=== PATIENT | female | born 1995 | race Caucasian/White ===

== ENCOUNTER 2023-07-29 05:39 | Inpatient (IN) ==
--- NOTE | 2023-07-09 10:57 | Anesthesiology Consultation ---
Date of Service July 09, 2023 Assessment & Plan Chart Review Chart Review: Acceptable Risk for Surgery and Patient NOT seen in Pre Admission Testing History Surgery Operation Date: 07/29/23 07:30 Proposed Procedures p Section (Delivery of Baby Through Abdominal Incision) - Maureen Chong MD, FACOG Height/Weight Height: 5 ft 10 in Weight: 145.059 kg Allergies Allergy/AdvReac Type Severity Reaction Status Date / Time No Known Allergies Allergy Verified 07/09/23 08:59 Medications Home Medications Medication Instructions Recorded Confirmed Last Taken vit 168-iron 27 mg-folic 1 cap PO QAM 12/08/22 07/09/23 07/01/23 08:00 acid 800 mcg-omega3 235 mg capsule (One-A-Day -1) breast pump #1 ea 05/10/23 07/05/23 Unknown aspirin 81 mg chewable tablet 81 mg PO QAM 07/01/23 07/09/23 07/01/23 08:00 acetaminophen 500 mg tablet 500 - 1,000 mg PO UD PRN Pain 07/09/23 07/09/23 Unknown (Tylenol Extra Strength) diphenhydramine 25 1 tab PO HS PRN Sleep 07/09/23 07/09/23 Unknown mg-acetaminophen 500 mg tablet (Tylenol PM Extra Strength) levothyroxine 25 mcg tablet 25 mcg PO QAM 07/09/23 07/09/23 Unknown Past Medical History Medical History History of anesthesia reaction with c/s groggy off and on for awhile after. with galbladder took awhile to wake up. n/v. History of anemia following c/s 2021. History of COVID-19 (~01/2023) x3 total , most recent 01/2023 Pre-eclampsia hx with prior / not sure if official dx this , is being monitored. eval in L&D 06/2023. History of cardiac murmur Noted in childhood/not heard as an adult per patient No murmur noted at PAT visit 05/10/23 History of anxiety Hypothyroidism Past Family History Family History Brother Seizures Past Surgical History Surgical History History of wisdom tooth extraction S/P cholecystectomy 09/2022, [facility] Hx of section Done under general anesthesia, 01/2022 (records scanned into [facility]) Social History Smoking Status: Former smoker Do You Dip or Chew Tobacco: No Smoking End Date: none for yrs Hx Alcohol Use: No Hx Substance Use: No substance use type: does not use
[~2023-07-29 05:39] MED LIST: SODIUM CHLORIDE 0.9% 250 ML IV PRN
[2023-07-29] MEDS ORDERED: LACTATED RINGER'S 1,000 ML IV SCH (05:45)
[2023-07-29] MEDS: LACTATED RINGER'S 1,000 ML IV SCH ×2 (06:04→12:19)
[2023-07-29 06:38] LABS: Basophils # (auto) 0.03 K/uL (0.00-0.20); Basophils % (auto) 0.3 %; Eosinophils # (auto) 0.06 K/uL (0.00-0.50); Eosinophils % (auto) 0.5 %; Hematocrit (blood only) 35.3 % (37.0-47.0); Hemoglobin 11.5 g/dl (12.0-16.0); Immature Granulocytes # (auto) 0.03 K/uL (0.01-0.20); Immature Granulocytes % (auto) 0.3 %; Lymphocytes # (auto) 2.18 K/uL (1.20-3.40); Lymphocytes % (auto) 19.8 %; Mean Corpuscular Hgb Conc 32.6 g/dL (32.0-36.0); Mean Corpuscular Volume 95.1 fL (80.0-100.0); Mean Platelet Volume 10.2 fL (9.4-12.4); Monocytes # (auto) 0.68 K/uL (0.11-0.59); Monocytes % (auto) 6.2 %; Neutrophils # (auto) 8.05 K/uL (1.40-6.50); Neutrophils % (auto) 72.9 %; Platelet Count 283 K/uL (130-400); RDW Coefficient of Variation 14.7 % (11.5-14.5); RDW Standard Deviation 50.6 fL (36.4-46.3); Red Blood Count 3.71 M/uL (4.20-5.40); White Blood Count 11.03 K/ul (4.8-10.8)
--- NOTE | 2023-07-29 07:05 | History & Physical Report ---
Date of Service July 29, 2023 Assessment & Plan (1) Obesity affecting : (2) Previous delivery affecting , antepartum: Plan 27 year old at 39 days and 3 days of weeks here for section, no candidate. trace category 1 To OR for C- Section Admission and Anticipated Discharge Date Admission Date: July 29, 2023 History of Present Illness Primary Care Provider: Manuel Mace, 27 year old at 39 days and 3 days of weeks. Here for section due to previous , no candidate. Complications during this is Obesity Has been attending OB appointments regularly. Currently taking no medications. GBS negative, Rubella Immune,BTG: O+ Contractions: none. Fluid or Blood loss: none Movement: active FHR baseline 130, moderate variability, accelerations present, decelerations absent Lab Results OB Labs: Blood Type O Positive 01/12/23 Antibody Screen NEGATIVE 01/12/23 Hemoglobin 12.0 g/dl (12.0-16.0) 07/01/23 Hematocrit 36.3 % (37.0-47.0) L 07/01/23 Mean Corpuscular Volume 93.8 fL (80.0-100.0) 07/01/23 Platelet Count 332 K/uL (130-400) 07/01/23 Rubella IgG Antibody Immune (Immune) 01/12/23 Rapid Plasma Reagin Nonreactive (Nonreactive) 01/12/23 Hepatitis B Surface Antigen. NON-REACTIVE (NON-REACTIVE) 01/12/23 Hepatitis C Antibody (EIA) NON-REACTIVE (NON-REACTIVE) 01/12/23 HIV (1&2) Ag and Ab Confirmation NON-REACTIVE (NON-REACTIVE) 01/12/23 Glucose 1 Hour 50 gm Load 93 mg/dl (70-130) 05/10/23 OB Optional Labs: Chlamydia trachomatis RNA Not Detected (NotDetected) 12/15/22 Neisseria gonorrhoeae RNA Not Detected (NotDetected) 12/15/22 Labs Reviewed: Declines genetics--mln Allergies Allergy/AdvReac Type Severity Reaction Status Date / Time No Known Allergies Allergy Verified 07/29/23 05:48 Home Medications Medication Instructions Recorded Confirmed Type vit 168-iron 27 mg-folic 1 cap PO QAM 12/08/22 07/29/23 History acid 800 mcg-omega3 235 mg capsule (One-A-Day -1) breast pump #1 ea 05/10/23 07/28/23 Rx aspirin 81 mg chewable tablet 81 mg PO QAM 07/01/23 07/29/23 History levothyroxine 25 mcg tablet 25 mcg PO QAM 07/09/23 07/29/23 History Patient History Medical History History of anesthesia reaction with c/s groggy off and on for awhile after. with galbladder took awhile to wake up. n/v. History of anemia following c/s 2021. History of COVID-19 (~01/2023) x3 total , most recent 01/2023 Pre-eclampsia hx with prior / not sure if official dx this , is being monitored. eval in L&D 06/2023. History of cardiac murmur Noted in childhood/not heard as an adult per patient No murmur noted at PAT visit 05/10/23 History of anxiety Hypothyroidism Surgical History History of wisdom tooth extraction S/P cholecystectomy 09/2022, [facility] Hx of section Done under general anesthesia, 01/2022 (records scanned into [employer]) Family History Brother Seizures Social History Smoking Status: Never smoker Smoking End Date: none for yrs; Do You Dip or Chew Tobacco: No; Hx Alcohol Use: No Hx Substance Use: No Preferred Language: Sami Communication Ability: Effective Fisher Seal Required: No Beliefs That Will Affect Care: None marital status: marital status details: Shad (25) [phone] Current Living Situation: Spouse and Family Current Living Situation Comment: lives with spouse and son, 4 cats, 1 dog, spouse changing litter. current occupational status: employed current occupation: Accounts payable. Other Information That Helps Us Care for You: No Feels Safe at Home: Yes Safety Concerns: Feels Safe At This Time Assistive Devices: Glasses Review of Systems as per HPI Physical Exam Physical Exam: General: patient resting comfortably, NAD, non-toxic in appearance, AA&O x 4, answers questions appropriately. Skin: warm, dry, intact HEENT: NC/AT, anicteric sclera, conjunctiva without injection, moist mucus membranes Heart: +S1/S2, regular, no m/r/g Lungs: equal air entry bilaterally, no rales/rhonchi/wheezes Abd: +BS, soft, NT/ND, gravid uterus Cervical: uterus mod. anterior Ext: warm, no clubbing/cyanosis or edema Neuro: nonfocal, patient AA&O x 4, speech intact, no facial droop, moving all extremities on command. Results & Data Vital Signs (Past 12 Hours) Vital Signs Temp Pulse Resp BP 07/29/23 06:09 89 121/62 07/29/23 05:50 36.9 C 18 Resident Activity Tracking Resident Involvement: Resident Care Provided Care Provided: OB Delivery
[2023-07-29] MEDS ORDERED: DEXAMETHASONE SOD INJ 4 MG/ML VIAL ONE (07:33)
[2023-07-29] MEDS ORDERED: fentaNYL citrate PF 100 MCG/2 ML VIAL ONE (07:33)
[2023-07-29] MEDS ORDERED: ONDANSETRON INJ 2 MG/ML 2 ML VIAL ONE (07:33)
[2023-07-29] MEDS ORDERED: ePHEDrine sulfate 50 MG/ML AMP ONE (07:33)
[2023-07-29] MEDS ORDERED: MoRPHine SULFATE PF 1 MG/ML 10 ML AMP/VIAL ONE (07:33)
[2023-07-29] MEDS ORDERED: PHENYLEPHRINE 100MCG/ML 10ML SYR IV ONE (07:33)
[2023-07-29] MEDS ORDERED: GLYCOPYRROLATE 0.2 MG/ML VIAL ONE (07:33)
[2023-07-29] MEDS ORDERED: OXYTOCIN 10 UNITS/ML VIAL ONE (07:33)
[2023-07-29] MEDS: CITRIC ACID/SODIUM CITRATE 15 ML UDC PO SCH (07:36)
[2023-07-29] MEDS: ceFAZolin 3,000 MG/72.5 ML BAG IV SCH (07:39)
[2023-07-29] MEDS ORDERED: LACTATED RINGER'S 500 ML IV PRN (08:43)
[2023-07-29] MEDS ORDERED: METOCLOPRAMIDE HCL 20 MG in SODIUM CHLORIDE 0.9% 50 ML IV PRN (08:43)
[2023-07-29] MEDS ORDERED: ONDANSETRON INJ 2 MG/ML 2 ML VIAL IV PRN (08:43)
[2023-07-29] MEDS ORDERED: PROMETHAZINE HCL 6.25 MG in SODIUM CHLORIDE 0.9% 50 ML IV PRN (08:43)
[2023-07-29] MEDS ORDERED: NALOXONE HCL 1 MG in SODIUM CHLORIDE 0.9% 1,000 ML IV PRN (08:43)
[2023-07-29] MEDS ORDERED: NALOXONE HCL 0.08 MG in SYRINGE 1.8 ML IV PRN (08:43)
[2023-07-29] MEDS ORDERED: MEPERIDINE HCL 25 MG/ML CARP/VIAL IV PRN (08:43)
[2023-07-29] MEDS ORDERED: NALBUPHINE HCL 5 MG in SYRINGE 0 ML IV PRN (08:43)
[2023-07-29] MEDS ORDERED: diphenhydrAMINE 50 MG/ML VIAL IV PRN (08:43)
[2023-07-29] MEDS ORDERED: NALOXONE HCL 0.4 MG/1 ML VIAL/CARP IV PRN (08:43)
[2023-07-29] MEDS ORDERED: ePHEDrine sulfate 50 MG/ML AMP IV PRN (08:43)
[2023-07-29] MEDS ORDERED: DROPERIDOL 5 MG/2 ML VIAL IV PRN (08:43)
[2023-07-29] MEDS ORDERED: DC INTRASPINAL MORPHINE SCH (08:45)
[2023-07-29] MEDS ORDERED: NO NARCOTICS OR SEDATIVES SCH (08:45)
--- NOTE | 2023-07-29 08:54 | Operative Report ---
PG Post Operative Report Pre & Post Diagnosis Operation Date: 07/29/23 07:30 Pre-Op Diagnosis: Prior section, maternal obesity, SIUP @ Term. Post-Op Diagnosis: Same I identified the patient and participated in the time-out.: Yes Procedure Operation Date: 07/29/23 07:30 Actual Procedures Repeat Low Transverse Section Surgeon Mary Ho MD Sodium Chlorite Operator Teri Estimated Blood Loss 489 (quantitative) Findings Consistent with Post-Op Diagnosis Specimens Placenta, cord blood Anesthesia Type Spinal Complications none Disposition Accompanied Patient To Recovery: Yes Disposition: L&D Description of Procedure The patient was placed operating table in the supine position with a leftward tilt. She was prepped and draped in standard sterile fashion. The anesthetic was tested and found to be adequate. A time-out was held, identifying correct patient, procedure, positioning and preoperative antibiotics. There were no concerns. A Pfannenstiel skin incision was made with a knife and taken down to the underlying layer of fascia. The fascia was incised in the midline with the knife and taken out laterally with scissors. The superior edge of the fascial incision was grasped, elevated and dissected off the underlying rectus both superiorly and inferiorly. The muscles were bluntly in the midline. The peritoneum was entered bluntly. The incision was then stretched. The bladder retractor was placed. The vesicouterine peritoneum was identified, entered with scissors and taken out laterally with scissors. The bladder flap was created digitally. The Tao retractor was placed. A hysterotomy incision was created transversely in the lower uterine segment, final entry being accomplished in a blunt manner with the reduction furnace operator's fingers. Clear amniotic fluid was encountered. The reduction furnace operator's hand was used to elevate the head to the hysterotomy. The head was delivered using mild fundal pressure, and the shoulders and body followed without difficulty. The cord was clamped and cut and the was then handed off to the awaiting calender wind up helper. Cord blood was obtained. The placenta was Manually extracted. The uterus was cleared of all clot and debris with moistened laparotomy sponges. The hysterotomy incision was repaired in two layers, the first in a running locked layer, the second in an imbricating layer. The ovaries and tubes were seen to be normal bilaterally. The Tao was removed, and the gutters were cleared of clot and debris. A final inspection of the hysterotomy revealed good hemostasis. The rectus muscles were allowed to reapproximate naturally. The fascia was then reapproximated with 1 Vicryl in a running nonlocked manner. The fascia was examined and found to be free of defect following closure. The subcutaneous tissue was copiously irrigated and reapproximated with 0-chromic, then the skin edges were closed with 4-0 monocryl in a subcuticular fashion. A dermabond dressing was applied. The stack was found to be draining clear yellow urine at completion of the procedure. I attest to the content of the Intraoperative Record and any orders documented therein. Any exceptions are noted below. I attest to the content of the Intraoperative Record and any orders documented therein. Any exceptions are noted below. OB Procedure Charges 98032
--- NOTE | 2023-07-29 08:55 | Anesthesiology Progress Note ---
Date of Service July 29, 2023 Anesthesia Post Procedure Vital Signs Vital Signs: Temp Pulse Resp BP Pulse Ox 07/29/23 08:52 58 L 99/50 L 99 07/29/23 06:09 89 121/62 07/29/23 05:50 36.9 C 18 Transfer of Care Handoff Completed per policy Notes Mental Status: alert / awake / arousable Patient Amnestic to Procedure: Yes Nausea / Vomiting: adequately controlled Pain: adequately controlled Airway Patency, RR, SpO2: stable & adequate BP & HR: stable & adequate Hydration State: stable & adequate Neuraxial Anesthesia: was administered and sensory block is resolving Anesthetic Complications: no major complications apparent and Pt Satisfied with anesthetic care
[2023-07-29] MEDS: SODIUM CHLORIDE 0.9% 1,000 ML IV SCH (10:46)
[2023-07-29] MEDS: MoRPHine SULFATE PF 1 MG/ML 10 ML AMP/VIAL INT SPINAL ONE (10:46)
[2023-07-29] MEDS ORDERED: SENNA 8.6 MG TAB PO PRN (11:19)
[2023-07-29] MEDS ORDERED: HYDROCORTISONE ACETATE 25 MG SUPP PR PRN (11:19)
[2023-07-29] MEDS ORDERED: BENZOCAINE 20% SPRY 85 APPLN/85 GM CAN EXT PRN (11:19)
[2023-07-29] MEDS ORDERED: MAGNESIUM HYDROXIDE SUSP 30 ML UDC PO PRN (11:19)
[2023-07-29] MEDS: DIPHTHER/TETAN/PERTUS Vaccine (Tdap, Adol/Adult) 0.5mL IM ONE (11:43)
[2023-07-29] MEDS: OXYTOCIN 30 UNITS/LR 1,003 ML IV SCH (11:47)
[2023-07-29] MEDS: SIMETHICONE 80 MG CHEW PO SCH (12:19)
[2023-07-29] MEDS: KETOROLAC 30 MG/ML VIAL IV PRN (12:20)
--- NOTE | 2023-07-29 12:21 | Electrocardiogram Report ---
Test Reason : Blood Pressure : / mmHG Vent. Rate : 048 BPM Atrial Rate : 048 BPM P-R Int : 116 ms QRS Dur : 074 ms QT Int : 456 ms P-R-T Axes : 014 056 043 degrees QTc Int : 407 ms Sinus bradycardia Otherwise normal ECG No previous ECGs available Confirmed by Myron Rodriguez ([id number]) on 07/29/2023 12:21:46 PM Referred By: Mary Ho Confirmed By:Myron Rodriguez
[2023-07-29] MEDS: HYDROmorphone INJ 0.5 MG/0.5 ML SYR IV PRN (17:03)
[2023-07-29] MEDS: DOCUSATE SODIUM 100 MG CAP PO SCH (21:33)
[2023-07-30] MEDS ORDERED: diphenhydrAMINE Capsule 25 MG CAP PO PRN (02:43)
[2023-07-30] MEDS ORDERED: MEPERIDINE HCL 50 MG/ML CARP IV PRN (02:43)
[2023-07-30] MEDS ORDERED: KETOROLAC 30 MG/ML VIAL IV PRN (02:43)
[2023-07-30] MEDS ORDERED: PROMETHAZINE HCL 25 MG in SODIUM CHLORIDE 0.9% 50 ML IV PRN (02:43)
[2023-07-30] MEDS ORDERED: diphenhydrAMINE 50 MG/ML VIAL IV PRN (02:43)
[2023-07-30] MEDS ORDERED: ONDANSETRON INJ 2 MG/ML 2 ML VIAL IV PRN (02:43)
[2023-07-30] MEDS: oxyCODONE/ACETAMINOPHEN 5mg/325mg TAB PO PRN (04:57)
[2023-07-30] MEDS: IBUPROFEN 600 MG TAB PO PRN (04:57)
--- NOTE | 2023-07-30 05:51 | Obstetrical Progress Note ---
Date of Service July 30, 2023 Assessment & Plan (1) Encounter for care and examination after delivery: Plan 28 y/o PPD#1 Doing well Rubella immune, BTG: O+ Vital signs reviewed Encourage breast feeding and ambulation Pain control Continue post care Admission and Anticipated Discharge Date Admission Date: July 29, 2023 Subjective 28 yo post- day 1 s/p c- section Ambulation: ambulating normally Voiding: no voiding problems Passing Gas: Yes Diet Tolerance: regular diet Lochia:: Small Feeding Type:breast feeding Current Pain Level: Moderate, controlled with pain med Resting comfortably this AM in NAD. Denies MCKENNA, CP, SOB, N/V/D, LE pain/swelling. Review of Systems Review of Systems: as per hPI Physical Exam 2 Physical Exam: General: patient resting comfortably, NAD, non-toxic in appearance, AA&O x 4, answers questions appropriately. Skin: warm, dry, intact Heart: +S1/S2, regular, no m/r/g Lungs: equal air entry bilaterally, no rales/rhonchi/wheezes Abd: +BS, soft, NT/ND, uterine fundus firm at umbilicus, incision clean, dry, no bleeding, purulent discharge, no signs of infection Ext: warm, no clubbing/cyanosis or edema, Watson's neg. Neuro: nonfocal, moving all extremities on command. Results & Data Vital Signs (Past 12 Hours) Vital Signs Temp Pulse Resp BP Pulse Ox O2 Del Method 07/30/23 03:10 36.6 C 56 L 18 99/67 L 100 Room Air 07/30/23 03:00 18 100 07/30/23 02:00 18 98 07/30/23 01:00 18 97 07/30/23 00:00 18 97 07/29/23 23:39 36.7 C 54 L 18 103/66 97 Room Air 07/29/23 23:00 18 94 07/29/23 22:00 18 95 07/29/23 21:00 18 94 07/29/23 20:00 18 95 07/29/23 19:50 36.5 C 52 L 18 98/64 L Room Air 07/29/23 19:00 18 94 07/29/23 18:25 16 98 Resident Activity Tracking Resident Involvement: Resident Care Provided Care Provided: OB Delivery
[2023-07-30 06:32] LABS: Basophils # (auto) 0.02 K/uL (0.00-0.20); Basophils % (auto) 0.2 %; Eosinophils # (auto) 0.04 K/uL (0.00-0.50); Eosinophils % (auto) 0.3 %; Hematocrit (blood only) 30.4 % (37.0-47.0); Hemoglobin 9.8 g/dl (12.0-16.0); Immature Granulocytes # (auto) 0.09 K/uL (0.01-0.20); Immature Granulocytes % (auto) 0.7 %; Lymphocytes # (auto) 2.98 K/uL (1.20-3.40); Lymphocytes % (auto) 22.6 %; Mean Corpuscular Hemoglobin 30.9 pg (25.0-34.0); Mean Corpuscular Hgb Conc 32.2 g/dL (32.0-36.0); Mean Corpuscular Volume 95.9 fL (80.0-100.0); Mean Platelet Volume 10.1 fL (9.4-12.4); Monocytes # (auto) 0.87 K/uL (0.11-0.59); Monocytes % (auto) 6.6 %; Neutrophils % (auto) 69.6 %; Platelet Count 264 K/uL (130-400); RDW Coefficient of Variation 14.6 % (11.5-14.5); Red Blood Count 3.17 M/uL (4.20-5.40)
[2023-07-30] MEDS: LEVOTHYROXINE SODIUM 25 MCG TABLET PO SCH (07:49)
[2023-07-30] MEDS: PRENATAL VITAMIN 1 TAB PO SCH (07:49)
[2023-07-30] MEDS: FERROUS SULFATE 325 MG TAB PO SCH (07:50)
[2023-07-30 19:09] VITALS: RESP 18
[2023-07-30] MEDS: bisacodyL 5 MG TABEC PO SCH (20:05)
--- NOTE | 2023-07-31 05:46 | Obstetrical Progress Note ---
Date of Service July 31, 2023 Assessment & Plan (1) Encounter for care and examination after delivery: Plan 28 y/o PPD#2 Doing well Rubella immune, BTG: O+ Vital signs reviewed Encourage breast feeding and ambulation Pain control Continue post care Discharge home today, instructions reviewed Follow up in 6 weeks in office Admission and Anticipated Discharge Date Admission Date: July 29, 2023 Supervising Physician Co-Signing Physician Notes Resident Physician Supervision Note: I was present with Dr. Jo during the history and exam. I discussed the case with the resident and agree with the findings and plan as documented in the note. Any exceptions or clarifications are listed here: doing well stable. eating, voiding ambulating. pain control adequate. breast feeding. abd soft ff at u nt, ext nt calves, incision c/d/i. pod #2 desires dc home, will plan 6wks followup. papdmp checked and no issues seen. instructions reviewed. Documented By: Christine Herring MD, FACOG Subjective 28 yo post- day 2 s/p c- section Ambulation: ambulating normally Voiding: no voiding problems Passing Gas: Yes Diet Tolerance: regular diet Lochia:: Small Feeding Type:breast feeding Current Pain Level: Moderate, controlled with pain med Resting comfortably this AM in NAD. Denies MCKENNA, CP, SOB, N/V/D, LE pain/swelling. Review of Systems Review of Systems: as per hPI Physical Exam Physical Exam: General: patient resting comfortably, NAD, non-toxic in appearance, AA&O x 4, answers questions appropriately. Skin: warm, dry, intact Heart: +S1/S2, regular, no m/r/g Lungs: equal air entry bilaterally, no rales/rhonchi/wheezes Abd: +BS, soft, NT/ND, uterine fundus firm at umbilicus, incision clean, dry, no bleeding, purulent discharge, no signs of infection Ext: warm, no clubbing/cyanosis or edema, Watson's neg. Neuro: nonfocal, moving all extremities on command. Results & Data Vital Signs (Past 12 Hours) Vital Signs Temp Pulse Resp BP Pulse Ox O2 Del Method 07/30/23 22:58 36.7 C 74 18 121/87 97 Room Air 05/31/24 20:15 Room Air 07/30/23 19:07 36.5 C 63 18 120/83 96 Room Air Resident Activity Tracking Resident Involvement: Resident Care Provided Care Provided: OB Delivery
[2023-07-31 06:22] LABS: Hematocrit (blood only) 31.8 % (37.0-47.0)
[2023-07-31 08:29] VITALS: BP 123/78; PULSE 77; TEMP 97.7; O2SAT 96
[2023-07-31] MEDS ORDERED: bisacodyL 10 MG SUPP PR PRN (10:50)
== END 2023-07-31 14:00 | disposition home or self-care (01) | DRG 788 ==
LOC: 4S1 05:39 → 4E2 11:45 → EDSTATUS 07-30 07:30